=== PATIENT | female | born 1975 | race Caucasian/White ===

== ENCOUNTER → 2017-03-23 | Outpatient (CLI) | payer OTHER ==
[~2017-03-23] MED LIST: ANT12.5 PO; COLACE100 MG PO; ELA10 PO; FIORICET1 TAB PO; KPHOS PO; NORCO1 TA2 PO; POTASSIUM CHLO20 ME1 PO; PRI20 PO; ZOFRAN8 MG PO
== END | disposition home or self-care (01) ==
LOC: CA 13:30
DX: R00.2 Palpitations (principal); R06.02 Shortness of breath

== ENCOUNTER 2017-05-02 16:10 | Emergency (ER) | payer OTHER ==
[2017-05-02 18:41] LABS: CARBON DIOXIDE 24.4 mmol/L (21-32); CHLORIDE SERUM 106 mmol/L (98-107); CREATININE SERUM 0.7 mg/dL (0.6-1.0); GFR1 > 60 mL/min; GLUCOSE SERUM 85 mg/dL (74-106); POTASSIUM SERUM 4.1 mmol/L (3.5-5.1); SODIUM SERUM 141 mmol/L (136-145)
[2017-05-02 18:45] LABS: BASOPHIL % 0.4 % (0-2); PLATELET COUNT 301 x10^3mcL (130-400)
[2017-05-02 20:02] VITALS: BP 135/77
== END 2017-05-02 20:02 | disposition home or self-care (01) ==
LOC: ED 16:10
PROVIDERS: Emergency Medicine
DX: R07.89 Other chest pain (principal); Z88.1 Allergy status to other antibiotic agents; Z88.2 Allergy status to sulfonamides
CPT/HCPCS: 36415; Q0092